=== PATIENT | female | born 1935 | race Two or more races ===

== ENCOUNTER 2018-07-07 09:24 | Emergency (ER) | payer OTHER ==
[2018-07-07 10:19] LABS: ADD MAN DIFF? NO
[2018-07-07 10:20] LABS: WHITE BLOOD COUNT 6.5 10^3/ul (4.8-10.8)
[2018-07-07 10:20] LABS: BASOPHILS % 0.3 % (0.0-2.0); EOSINOPHILS # 0.1 10^3/ul (0.0-0.5); EOSINOPHILS % 0.8 % (0.0-7.0); HEMATOCRIT 38.8 % (37.0-47.0); HEMOGLOBIN 13.3 g/dl (12.0-16.0); LYMPHOCYTES # 1.6 10^3/ul (0.8-2.9); LYMPHOCYTES % 23.8 % (15.0-51.0); MEAN CORPUSCULAR HEMOGLOBIN 31.1 pg (29.0-33.0); MEAN CORPUSCULAR HGB CONC 34.3 g/dl (32.0-37.0); MEAN CORPUSCULAR VOLUME 90.7 fl (82.0-101.0); MONOCYTE # 0.2 10^3/ul (0.3-0.9); MONOCYTES % 3.4 % (0.0-11.0); NEUTROPHIL # 4.7 10^3/ul (1.6-7.5); NEUTROPHILS % 71.5 % (39.0-77.0); PLATELET COUNT 223 10^3/UL (140-415); RED BLOOD COUNT 4.28 10^6/ul (4.20-5.40); RED CELL DISTRIBUTION WIDTH 12.4 % (11.5-14.5)
[2018-07-07] MEDS: SOD CHLORIDE 0.9% 500 ML IV (10:22)
[2018-07-07] MEDS: FAMOTIDINE 20 MG TAB PO (10:22)
[2018-07-07] MEDS: ONDANSETRON 4 MG INJ IV (10:22)
[2018-07-07] MEDS: morphine 4 MG/ML VIAL IV (10:22)
[2018-07-07 10:48] LABS: ALANINE AMINOTRANSFERASE 46 IU/L (13-69); ALBUMIN 4.2 g/dl (3.3-4.9); ALBUMIN/GLOBULIN RATIO 1.27; ALKALINE PHOSPHATASE 105 IU/L (42-121); ANION GAP 15 (8-16); ASPARTATE AMINO TRANSFERASE 47 IU/L (15-46); BILIRUBIN,INDIRECT 0.5 mg/dl (0-1.1); BILIRUBIN,TOTAL 0.5 mg/dl (0.2-1.3); BLOOD UREA NITROGEN 18 mg/dl (7-20); CALCIUM 9.2 mg/dl (8.4-10.2); CARBON DIOXIDE 22 mmol/L (21-31); CHLORIDE 109 mmol/L (97-110); GLUCOSE 181 mg/dl (70-220); LIPASE 61 U/L (23-300); POTASSIUM 3.6 mmol/L (3.5-5.1); SODIUM 142 mmol/L (135-144); TOTAL PROTEIN 7.5 g/dl (6.1-8.1)
[2018-07-07 14:34] LABS: ADD UMIC YES; UR ASCORBIC ACID 40 mg/dL (NEGATIVE); UR BILIRUBIN (Dip) NEGATIVE (NEGATIVE); UR BLOOD (Dip) NEGATIVE (NEGATIVE); UR CLARITY CLEAR (CLEAR); UR COLOR YELLOW (YELLOW); UR GLUCOSE (Dip) NEGATIVE (NEGATIVE); UR KETONES (Dip) NEGATIVE (NEGATIVE); UR LEUKOCYTE ESTERASE (Dip) NEGATIVE Leu/ul (NEGATIVE); UR NITRITE (Dip) NEGATIVE (NEGATIVE); UR RBC 0 /HPF (0-5); UR TOTAL PROTEIN (Dip) 2+ mg/dl (NEGATIVE); UR UROBILINOGEN (Dip) NEGATIVE (NEGATIVE); UR WBC 0 /HPF (0-5)
== END 2018-07-07 13:35 | disposition home or self-care (01) ==
LOC: E/R 09:24
DX: K29.00 Acute gastritis without bleeding (principal); I10 Essential (primary) hypertension
CPT/HCPCS: 36415; 71045; 80053; 81001; 83690; 84484; 85025; 93005; 96361; 96374; 96375; 99285-25

== ENCOUNTER 2019-07-19 10:06 | Observation (INO) | payer OTHER ==
[2019-07-19] MEDS ORDERED: ONDANSETRON 4 MG INJ (12:21)
[2019-07-19 12:37] LABS: ADD MAN DIFF? NO
[2019-07-19 12:39] LABS: BASOPHILS % 0.3 % (0.0-2.0); EOSINOPHILS % 0.3 % (0.0-7.0); HEMATOCRIT 42.4 % (37.0-47.0); HEMOGLOBIN 13.8 g/dl (12.0-16.0); LYMPHOCYTES # 2.1 10^3/ul (0.8-2.9); LYMPHOCYTES % 23.5 % (15.0-51.0); MEAN CORPUSCULAR HEMOGLOBIN 29.7 pg (29.0-33.0); MEAN CORPUSCULAR HGB CONC 32.5 g/dl (32.0-37.0); MEAN CORPUSCULAR VOLUME 91.4 fl (82.0-101.0); MONOCYTE # 0.3 10^3/ul (0.3-0.9); MONOCYTES % 3.4 % (0.0-11.0); NEUTROPHIL # 6.3 10^3/ul (1.6-7.5); NEUTROPHILS % 71.8 % (39.0-77.0); PLATELET COUNT 216 10^3/UL (140-415); RED BLOOD COUNT 4.64 10^6/ul (4.20-5.40); RED CELL DISTRIBUTION WIDTH 12.9 % (11.5-14.5)
[2019-07-19 12:39] LABS: WHITE BLOOD COUNT 8.8 10^3/ul (4.8-10.8)
[2019-07-19 12:58] LABS: PT RATIO 0.9
[2019-07-19 12:59] LABS: PARTIAL THROMBOPLASTIN TIME 27.4 Sec (23.0-35.0)
[2019-07-19 13:07] LABS: ANION GAP 8 (5-13); BLOOD UREA NITROGEN 23 mg/dl (7-20); CALCIUM 9.5 mg/dl (8.4-10.2); CARBON DIOXIDE 23 mmol/L (21-31); CHLORIDE 109 mmol/L (97-110); CHOLESTEROL 204 mg/dl (100-200); CREATININE 0.86 mg/dl (0.44-1.00); GLUCOSE 136 mg/dl (70-220); HDL CHOLESTEROL 68 mg/dl (33-92); LDL CHOLESTEROL,CALCULATED 120 mg/dl; POTASSIUM 3.6 mmol/L (3.5-5.1); SODIUM 140 mmol/L (135-144); TRIGLYCERIDES 79 mg/dl (0-149)
[2019-07-19] MEDS: ONDANSETRON 4 MG INJ IV (13:18)
[2019-07-19 13:19] LABS: TROPONIN-I < 0.012 ng/ml (0.000-0.120)
[2019-07-19 13:21] LABS: HEMOGLOBIN A1C 5.9 % (0-5.9)
[2019-07-19] MEDS: SOD CHLORIDE 0.9% 1,000 ML IV (13:32)
[2019-07-19] MEDS: MECLIZINE 12.5 MG TAB PO (13:32)
[2019-07-19] MEDS: FAMOTIDINE 20 MG INJ IV (13:47)
[2019-07-19] MEDS: LIDOCAINE/MYLANTA 40 ML BTL PO (13:47)
[2019-07-19 13:55] LABS: INR 0.85; PROTIME 11.7 Sec (11.9-14.9)
[2019-07-19] MEDS ORDERED: NACL 0.9% 3 ML SYG IV (14:30)
[2019-07-19] MEDS ORDERED: MECLIZINE 25 MG TAB PO (14:30)
[2019-07-19] MEDS ORDERED: ONDANSETRON 4 MG INJ IV (14:30)
[2019-07-19] MEDS ORDERED: ONDANSETRON 4 MG TAB PO (14:30)
[2019-07-19] MEDS ORDERED: DOCUSATE SODIUM 100 MG CAP PO (14:30)
[2019-07-19] MEDS ORDERED: ACETAMINOPHEN 325 MG TAB PO (14:30)
[2019-07-19] MEDS: LOSARTAN 50 MG TAB PO (16:02)
[2019-07-19] MEDS: PANTOPRAZOLE (EC) 40 MG TAB PO (16:02)
[2019-07-19] MEDS: ENOXAPARIN 40 MG/0.4 ML SYG SC (16:02)
[2019-07-19] MEDS: ATORVASTATIN 20 MG TAB PO (21:32)
[2019-07-20 00:36] LABS: ADD UMIC NO; UR ASCORBIC ACID NEGATIVE (NEGATIVE); UR BILIRUBIN (Dip) NEGATIVE (NEGATIVE); UR BLOOD (Dip) NEGATIVE (NEGATIVE); UR CLARITY CLEAR (CLEAR); UR COLOR YELLOW (YELLOW); UR GLUCOSE (Dip) NEGATIVE (NEGATIVE); UR KETONES (Dip) NEGATIVE (NEGATIVE); UR LEUKOCYTE ESTERASE (Dip) NEGATIVE Leu/ul (NEGATIVE); UR NITRITE (Dip) NEGATIVE (NEGATIVE); UR SPECIFIC GRAVITY (Dip) 1.011 (1.003-1.030); UR TOTAL PROTEIN (Dip) NEGATIVE (NEGATIVE); UR UROBILINOGEN (Dip) NEGATIVE (NEGATIVE)
[2019-07-20 00:53] LABS: AMPHETAMINE/METHAMPHETAMINE Negative (NEGATIVE); BARBITURATES Negative (NEGATIVE); BENZODIAZEPINES Negative (NEGATIVE); CANNABINOIDS Negative (NEGATIVE); COCAINE Negative (NEGATIVE); OPIATES Negative (NEGATIVE)
[2019-07-20] MEDS: ALENDRONATE 70 MG TAB PO (06:00)
[2019-07-20 06:03] LABS: ADD MAN DIFF? NO
[2019-07-20 06:08] LABS: BASOPHIL # 0.1 10^3/ul (0.0-0.1); BASOPHILS % 0.9 % (0.0-2.0); EOSINOPHILS # 0.1 10^3/ul (0.0-0.5); EOSINOPHILS % 1.8 % (0.0-7.0); HEMATOCRIT 37.9 % (37.0-47.0); HEMOGLOBIN 12.2 g/dl (12.0-16.0); LYMPHOCYTES # 2.1 10^3/ul (0.8-2.9); MEAN CORPUSCULAR HEMOGLOBIN 30.2 pg (29.0-33.0); MEAN CORPUSCULAR HGB CONC 32.2 g/dl (32.0-37.0); MEAN CORPUSCULAR VOLUME 93.8 fl (82.0-101.0); MEAN PLATELET VOLUME 10.2 fl (7.4-10.4); MONOCYTE # 0.4 10^3/ul (0.3-0.9); MONOCYTES % 6.8 % (0.0-11.0); NEUTROPHIL # 2.9 10^3/ul (1.6-7.5); NEUTROPHILS % 52.3 % (39.0-77.0); PLATELET COUNT 184 10^3/UL (140-415); RED BLOOD COUNT 4.04 10^6/ul (4.20-5.40)
[2019-07-20 06:08] LABS: WHITE BLOOD COUNT 5.6 10^3/ul (4.8-10.8)
[2019-07-20 06:32] LABS: ANION GAP 5 (5-13); BLOOD UREA NITROGEN 17 mg/dl (7-20); CALCIUM 8.4 mg/dl (8.4-10.2); CARBON DIOXIDE 25 mmol/L (21-31); CHLORIDE 112 mmol/L (97-110); CREATININE 0.84 mg/dl (0.44-1.00); GLUCOSE 91 mg/dl (70-220); POTASSIUM 3.3 mmol/L (3.5-5.1); SODIUM 142 mmol/L (135-144)
[2019-07-20 06:58] LABS: THYROID STIMULATING HORMONE 0.232 MIU/L (0.465-4.680)
[2019-07-20] MEDS: ACETAMINOPHEN 325 MG TAB PO (07:48)
[2019-07-20] MEDS: LOSARTAN 50 MG TAB PO (09:07)
[2019-07-20] MEDS: FAMOTIDINE 20 MG TAB PO (09:07)
[2019-07-20] MEDS: ENOXAPARIN 40 MG/0.4 ML SYG SC (09:12)
[2019-07-20] MEDS: POTASSIUM CHLORIDE (SR) 20 MEQ TAB PO ×2 (10:48→14:43)
[2019-07-20 11:36] LABS: FREE T4 (FREE THYROXINE) 1.27 ng/dl (0.85-1.93)
[2019-07-20 11:50] LABS: TRIIODOTHYRONINE 0.86 ng/ml (0.97-1.69)
== END 2019-07-20 20:00 | disposition home or self-care (01) ==
LOC: E/R 10:06 → TEL 07-20 14:06
DX: R42 Dizziness and giddiness (principal); K21.9 Gastro-esophageal reflux disease without esophagitis; R00.1 Bradycardia, unspecified; E78.00 Pure hypercholesterolemia, unspecified
CPT/HCPCS: 36415; 70450; 71045; 80048; 80061; 80307; 81003; 83036; 84439; 84443; 84480; 84484; 85025; 85610; 85730; 93005; 93880; 96374; 96375; 99217; 99285-25